=== PATIENT | female | born 1960 | race Hispanic/Latino ===

== ENCOUNTER 2016-08-06 19:36 | Emergency (ER) | payer BC ==
[2016-08-06 19:46] VITALS: RESP 18
--- NOTE | 2016-08-06 20:48 | ED PDOC ---
HPI: General Adult Time Seen by Provider: 08/06/16 20:25 Chief Complaint (Nursing): Fever Chief Complaint (Provider): Fever History Per: Patient Additional Complaint(s): 56 yo female, PMH of Metastatic Breast CA currently undergoing Chemo x 2 weeks now, preesnts to ED for acute onset of fever ~ 5 pm. Pt reports she felt overall bodyaches and feverish and chills. Pt did not take her temp; however, she called her oncologist- Dr. Syed, [facility], who advised ED visit for bloodwork and cultures. Past Medical History Reviewed: Nursing Documentation, Vital Signs Vital Signs: Last Vital Signs Temp 99.6 F 08/06/16 19:43 Pulse 120 H 08/06/16 19:43 Resp 18 08/06/16 19:43 BP 136/94 H 08/06/16 19:43 Pulse Ox 98 08/06/16 22:56 - Medical History Other PMH: Berast CA - Surgical History Other surgeries: Lumpectomy in 2014 - Family History Family History: States: Unknown Family Hx - Living Arrangements Living Arrangements: With Family - Social History Current smoker - smoking cessation education provided: No Alcohol: None Drugs: Denies - Allergies Allergies/Adverse Reactions: Allergies Allergy/AdvReac Type Severity Reaction Status Date / Time sudaphed AdvReac SHORTNESS Uncoded 08/06/16 19:43 OF BREATH Review of Systems ROS Statement: Except As Marked, All Systems Reviewed And Found Negative Constitutional: Positive for: Fever, Chills, Weakness Physical Exam - Reviewed Nursing Documentation Reviewed: Yes Vital Signs Reviewed: Yes - Physical Exam Appears: Positive for: Well, Non-toxic, No Acute Distress Head Exam: Positive for: ATRAUMATIC, NORMAL INSPECTION, NORMOCEPHALIC Skin: Positive for: Normal Color, Warm, DRY Eye Exam: Positive for: EOMI, Normal appearance, PERRL ENT: Positive for: Normal ENT Inspection Neck: Positive for: Normal, Painless ROM Cardiovascular/Chest: Positive for: Regular Rate, Rhythm Respiratory: Positive for: CNT, Normal Breath Sounds Gastrointestinal/Abdominal: Positive for: Normal Exam, Bowel Sounds, Soft Back: Positive for: Normal Inspection Extremity: Positive for: Normal ROM Neurologic/Psych: Positive for: Alert, Oriented - Laboratory Results Result Diagrams: 08/06/16 21:38 08/06/16 21:38 - ECG O2 Sat by Pulse Oximetry: 98 Medical Decision Making Medical Decision Making: Pt refused CXR, did not want to provide urine sample. labs resulted and reviewed with pt who demonstrated full understanding. VBG results discussed with Dr. Mac, ABG ordered; however, pt refused Spoke with Pt's oncologist, Dr. Lira, who advised observation at this time due to concern about her neutrophil levels. Observation request discussed with pt at length who would liek to sign out AMA. Pt reports feeling well at this time and would liek to follow up with her own physician on Monday when she has an appointment already scheduled, or at [facility] tomorrow if another hospital visit is needed. Risks of signing out AMA discussed at length. Pt advised to return to nearest ED if at anytime condition worsens. Disposition - Clinical Impression Clinical Impression: Fever in adult - Patient ED Disposition Is Patient to be Admitted: No - Disposition Disposition: Routine/Home Disposition Time: 23:42 Condition: STABLE - POA Present On Arrival: None
[2016-08-06] MEDS ORDERED: Sodium Chloride 0.9% 1,000 ML IV SCH (21:00)
[2016-08-06 21:33] LABS: VENOUS BLOOD GAS BASE EXCESS -3.8 mmol/L (0.0-2.0); VENOUS BLOOD GAS PCO2 88 mmHg (40-60); VENOUS BLOOD PH 7.11 (7.32-7.43)
[2016-08-06 21:44] LABS: BASO % 0.6 % (0.0-2.0); EOS # 0.1 K/uL (0.0-0.7); EOS % 5.7 % (0.0-4.0); HEMATOCRIT 33.5 % (34.0-47.0); LYMPH # 0.6 K/uL (1.0-4.3); LYMPH % 29.5 % (20.0-40.0); MEAN CELL VOLUME 93.7 fl (81.0-99.0); MEAN CORPUSCULAR HEMOGLOBIN 30.4 pg (27.0-31.0); MEAN CORPUSCULAR HGB CONC 32.5 g/dL (33.0-37.0); MEAN PLATELET VOLUME 9.8 fl (7.2-11.7); MONO # 0.1 K/uL (0.0-0.8); MONO % 4.1 % (0.0-10.0); NEUT # 1.3 K/uL (1.8-7.0); NEUT % 60.1 % (50.0-75.0); NRBC % 0.1 % (0.0-0.0); RED CELL DISTRIBUTION WIDTH 13.6 % (11.5-14.5); WHITE BLOOD COUNT 2.1 K/uL (4.8-10.8)
[2016-08-06 22:10] LABS: ALB/GLOB RATIO 1.3 (1.0-2.1); ALKALINE PHOSPHATASE 57 U/L (38-126); ALT/SGPT 24 U/L (9-52); AST/SGOT 22 U/L (14-36); BILIRUBIN,TOTAL 0.4 mg/dl (0.2-1.3); BLOOD UREA NITROGEN 15 mg/dl (7-17); CALCIUM 9.7 mg/dL (8.4-10.2); CARBON DIOXIDE 26 mmol/L (22-30); CHLORIDE 105 mmol/L (98-107); GFR AFRICAN-AMERICAN > 60; GLUCOSE,RANDOM 91 mg/dL (65-105); MAGNESIUM 2.2 MG/DL (1.6-2.3); PHOSPHOROUS 3.2 mg/dl (2.5-4.5); POTASSIUM 3.6 MMOL/L (3.6-5.0); SODIUM 149 mmol/l (132-148); TOTAL PROTEIN 7.7 G/DL (6.3-8.2)
[2016-08-06 23:11] LABS: PARTIAL THROMBOPLASTIN TIME 23.2 SECONDS (23.3-32.5)
[2016-08-06 23:19] VITALS: BP 120/73; PULSE 89; TEMP 100.6
[2016-08-06 23:40] VITALS: O2SAT 98
== END 2016-08-06 23:43 | disposition left against medical advice (07) ==
LOC: H.ER 19:36
DX: R50.9 Fever, unspecified (principal); C50.919 Malignant neoplasm of unspecified site of unspecified female breast